=== PATIENT | female | born 2000 | race African-American/Black ===

== ENCOUNTER 2018-09-24 09:21 | Emergency (ER) | payer SELFPAY ==
[2018-09-24] MEDS ORDERED: LIDOCAINE 1% (MDV) 20 ML INJ (13:03)
[2018-09-24] MEDS: LIDOCAINE 1% (MDV) 10 ML INJ INJ (13:51)
[2018-09-24] MEDS: HYDROCODONE/APAP (5/325) TAB PO (13:59)
[2018-09-24] MEDS: DIPHTH/TET/ACEL PERTUSS (ADULT) 0.5 ML VIAL IM* (14:00)
== END 2018-09-24 14:10 | disposition home or self-care (01) ==
LOC: FTE 09:21
DX: N90.7 Vulvar cyst (principal); Z23 Encounter for immunization
CPT/HCPCS: 90471; 90715; 99283-25